=== PATIENT | male | born 1955 | race Caucasian/White ===

== ENCOUNTER 2019-10-07 22:10 | Emergency (ER) | payer MEDICARE ==
[~2019-10-07 22:10] MED LIST: Amiodarone 150 MG/3 ML VIAL ONE; Calcium Chloride 1 GM/10 ML Abboject SYRINGE ONE; Dextrose 50% Abboject 50 ML SYRINGE ONE; EPINEPHrine 1 MG/10 ML Abboject SYRINGE ONE; EPINEPHrine 1 MG/ML AMP ONE; Sodium Bicarb 50 MEQ/50 ML Abboject 8.4% SYRINGE ONE
[2019-10-07] MEDS ORDERED: EPINEPHrine 1 MG/ML AMP ONE (22:16)
[2019-10-07] MEDS ORDERED: Norepinephrine 8 MG/0.9% NS 250 ML ONE (22:35)
== END 2019-10-07 22:42 | disposition expired ==
LOC: ERS 22:10
DX: I46.9 Cardiac arrest, cause unspecified (principal); J45.909 Unspecified asthma, uncomplicated; I10 Essential (primary) hypertension
CPT/HCPCS: 31500; 36416; 36556; 92950; 93005; 96374; 96375; J0171; J0282